=== PATIENT | female | born 1995 | race Caucasian/White ===

== ENCOUNTER 2018-05-05 09:10 | Emergency (ER) | payer OTHER ==
[~2018-05-05] VITALS: Ht 172.7 cm; Wt 74.4 kg
[~2018-05-05 09:10] MED LIST: NAPROSYN500 MG PO; PREDNISONE20 MG PO; ZITHROMAX500 MG PO
[2018-05-05 09:36] LABS: HEMATOCRIT 33.3 % (36.0-46.0); HEMOGLOBIN 11.8 G/DL (11.9-15.5); MCH 31.6 PG (29.0-34.0); MCHC 35.4 G/DL (30.0-36.0); PLATELET COUNT 154 K/uL (156-360); RBC DIS.WIDTH-CV 12.4 % (11.8-14.6); RBC DIS.WIDTH-SD 40.4 % (39-53); RED BLOOD COUNT 3.74 M/uL (3.80-5.20); WHITE BLOOD COUNT 7.1 K/uL (4.1-10.2)
[2018-05-05 09:46] LABS: ALBUMIN 4.4 g/dL (3.2-4.8); CHLORIDE 105 mEq/L (99-109); POTASSIUM 3.9 mEq/L (3.7-5.4); SODIUM 136 mEq/L (136-147)
[2018-05-05 09:49] LABS: GLUCOSE 87 mg/dL (70-99); TOTAL PROTEIN 6.8 g/dL (6.4-8.3)
[2018-05-05 09:52] LABS: ALKALINE PHOSPHATASE 42 IU/L (3-129); CREATININE 0.7 mg/dL (0.6-1.3); GFR ESTIMATE (CALCULATED) > 59 mL/min/
[2018-05-05 09:53] LABS: UREA NITROGEN (BUN) 7 mg/dL (9-23)
[2018-05-05 09:54] LABS: AST (GOT) 10 IU/L (2-34)
[2018-05-05 09:55] LABS: ALT (GPT) 10 IU/L (3-49)
[2018-05-05 10:29] LABS: QUANTITATIVE HCG 52542.1 MIU/ML
[2018-05-05 11:15] LABS: APPEARANCE CLOUDY ((CLEAR)); BILIRUBIN NEGATIVE; BLOOD SMALL; COLOR YELLOW ((YELLOW)); GLUCOSE (STRIP) NEGATIVE; KETONES 80; LEUKOCYTES NEGATIVE; NITRITE POSITIVE; PROTEIN (STRIP) NEGATIVE; SPECIFIC GRAVITY 1.018 (1.000-1.030); UROBILINOGEN 0.2 MG/DL (0.2-1.0)
[2018-05-05 11:20] LABS: BACTERIA 1+ /HPF; EPITHELIAL CELLS 2+ /HPF; MUCUS 1+ /LPF; RED BLOOD CELLS 0-5 /HPF (0-5); UCUL ADDED? NO; WHITE BLOOD CELLS 0-5 /HPF (0-5)
[2018-05-05] MEDS ORDERED: ZOFRAN4 MG PO (12:37)
[2018-05-05] MEDS ORDERED: KEFLEX500 MG PO (12:37)
[2018-05-05 12:44] VITALS: BP 135/81
[2018-05-05 13:07] LABS: LIPASE 4 U/L (1.0-51.0)
== END 2018-05-05 12:46 | disposition home or self-care (01) ==
LOC: EME 09:10
PROVIDERS: Nurse Practitioner Family
DX: O23.41 Unspecified infection of urinary tract in pregnancy, first trimester (principal); O21.9 Vomiting of pregnancy, unspecified; Z3A.01 Less than 8 weeks gestation of pregnancy; O99.331 Smoking (tobacco) complicating pregnancy, first trimester; F17.200 Nicotine dependence, unspecified, uncomplicated
CPT/HCPCS: 76801; 80053; 81003; 83690; 84702; 85027; 86900; 86901; 99281; 99284; J0500; J1885